=== PATIENT | male | born 2005 | race Caucasian/White ===

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

== ENCOUNTER → 2023-07-18 | Outpatient (CLI) | payer MEDICAID | LOC: M OUTALCOH 12:33 | PROVIDERS: ATTEND Psychiatry & Neurology Psychiatry | DX: Z03.89 Encounter for observation for other suspected diseases and conditions ruled out (principal) ==